=== PATIENT | male | born 1955 | race Caucasian/White ===

== ENCOUNTER 2021-12-15 11:50 | Observation (INO) ==
[2021-12-15 13:06] VITALS: TEMP 97.6
[2021-12-15 14:50] LABS: Basophils % 0.3 %; Eosinophils % 0.2 %; Immature Granulocytes % 0.2 % (0-4); Red Blood Count 5.08 M/mcL (4.19-5.50)
[2021-12-15 14:52] LABS: Hematocrit 44.5 % (37.5-50.1); Hemoglobin 14.2 g/dL (12.9-16.9); Immature Platelets 4.9 % (1.1-6.1); Lymphocytes # 1.4 K/mcL (0.6-4.6); Lymphocytes % 16.6 %; Mean Corpuscular HGB Conc 31.9 g/dL (31.6-35.5); Mean Corpuscular Volume 87.6 fL (83.0-100.0); Monocytes # 0.8 K/mcL (0.0-1.3); Monocytes % 8.8 %; Neutrophils # 6.4 K/mcL (1.6-8.9); Red Cell Distribution Width 21.9 % (11.5-14.5); Segmented Neutrophils % 73.9 %; White Blood Count 8.7 K/mcL (4.3-11.1)
[2021-12-15 15:06] LABS: BUN/Creatinine Ratio 31 (6-26); Blood Urea Nitrogen 28 mg/dL (8-23); Calcium 10.2 mg/dL (8.6-10.3); Carbon Dioxide 25 mEq/L (23-29); Chloride 96 mEq/L (98-107); Glucose 139 mg/dL (70-105); Osmolality,Calculated 282 (280-300); Potassium 4.9 mEq/L (3.5-5.1); Sodium 132 mEq/L (136-145)
[2021-12-15] MEDS ORDERED: Morphine Sulfate 2 MG/ML SYRINGE IVP ONE (15:36)
[2021-12-15] MEDS ORDERED: 0.9 % Sodium Chloride 1,000 ML IVC ONE (15:36)
[2021-12-15] MEDS ORDERED: Ondansetron 4 MG/2 ML VIAL IVP ONE (15:36)
[2021-12-15] MEDS ORDERED: Iopamidol - 370 500 ML MLS IVP ONE ×2 (15:37→15:39)
[2021-12-15 15:41] LABS: Platelet Count 97 K/mcL (140-400)
[2021-12-15 15:46] LABS: Polychromasia 1+ (Not Present); Stomatocytes 1+ (Not Present)
[2021-12-15 15:47] LABS: Platelet Estimate Decreased (Normal); Target Cells 1+ (Not Present)
[2021-12-15] MEDS ORDERED: Ipratropium/Albuterol Neb 3 ML IH ONE (15:54)
[2021-12-15 16:11] LABS: ABG Base Excess -2 mEq/L (-2 to 3); ABG HCO3 23 mEq/L (21-27); ABG Oxygen Saturation 92 % (95-98); ABG PCO2 38 mmHg (35-45); ABG PH 7.38 pH Units (7.32-7.45); ABG PO2 66 mmHg (85-104); ABG TCO2 24 mEq/L (20-26)
[2021-12-15 16:26] LABS: Lipase 35 Units/L (11-82)
[2021-12-15 16:31] LABS: Troponin I 0.08 ng/mL (< 0.04)
[2021-12-15] MEDS ORDERED: Aspirin 325 MG TABLET PO ONE (16:32)
[2021-12-15 16:37] LABS: INR 1.6; Prothrombin Time 17.5 Seconds (9.4-12.1)
[2021-12-15] MEDS ORDERED: cefTRIAXone 2,000 MG in 0.9 % Sodium Chloride Mini Bag 100 ML IVPB ONE (17:15)
[2021-12-15] MEDS ORDERED: Doxycycline 100 MG in 0.9 % Sodium Chloride Mini Bag 100 ML IVPB ONE (17:31)
[2021-12-15] MEDS: 0.9 % Sodium Chloride 1,000 ML IVC SCH ×2 (18:18→21:58)
[2021-12-15 18:37] LABS: Adenovirus Not Detected (Not Detect); Bordetella Pertussis Not Detected (Not Detect); Chlamydophila pneumoniae Not Detected (Not Detect); Coronavirus 229E Not Detected (Not Detect); Coronavirus HKU1 Not Detected (Not Detect); Coronavirus NL63 Not Detected (Not Detect); Coronavirus OC43 Not Detected (Not Detect); Human Metapneumovirus Not Detected (Not Detect); Human Rhinovirus/Enterovirus Not Detected (Not Detect); Influenza A Subtype 2009 H1 Not Detected (Not Detect); Influenza B Not Detected (Not Detect); Mycoplasma pneumoniae Not Detected (Not Detect); Parainfluenza Virus 1 Not Detected (Not Detect); Parainfluenza Virus 2 Not Detected (Not Detect); Parainfluenza Virus 3 Not Detected (Not Detect); Parainfluenza Virus 4 Not Detected (Not Detect); Respiratory Syncytial Virus Not Detected (Not Detect); SARS-CoV-2 Not Detected (Not Detect)
[2021-12-15] MEDS ORDERED: Heparin 25,000UNIT/250ML 1/2NS 25,000 UNIT/250 ML IV.SOLN IVC SCH ×2 (19:30)
[2021-12-15] MEDS ORDERED: Ondansetron 4 MG/2 ML VIAL IVP PRN (19:45)
[2021-12-15] MEDS ORDERED: Melatonin 3 MG TABLET PO PRN (19:45)
[2021-12-15] MEDS ORDERED: Naloxone 0.4 MG/ML INJ IVP PRN (19:45)
[2021-12-15] MEDS ORDERED: Pregabalin 50 MG CAPSULE PO SCH (21:01)
[2021-12-15] MEDS ORDERED: methylPREDNISolone 125 MG/2 ML VIAL IVP ONE ×2 (21:11→21:44)
[2021-12-15] MEDS ORDERED: Metoprolol XL (24 HR) Succ 25 MG TAB.ER.24H PO SCH (21:15)
[2021-12-15 21:18] VITALS: O2SAT 93
[2021-12-15 21:21] VITALS: BP 143/64; PULSE 92
[2021-12-15] MEDS ORDERED: D5% in Water 1,000 ML IVC PRN (21:43)
[2021-12-15] MEDS ORDERED: Dextrose Gel 15 GM/37.5 ML TUBE PO PRN ×2 (21:43)
[2021-12-15] MEDS ORDERED: *HR* Dextrose 50 % in Water (Syg) 50 ML SYRINGE IVP PRN (21:43)
[2021-12-15] MEDS ORDERED: Metoprolol XL (24 HR) Succ 25 MG TAB.ER.24H PO ONE (21:44)
[2021-12-15] MEDS ORDERED: Pregabalin 50 MG CAPSULE PO ONE (21:46)
[2021-12-15] MEDS ORDERED: 0.9 % Sodium Chloride 1,000 ML IV.SOLN IVC ONE (21:47)
[2021-12-15] MEDS ORDERED: Budesonide/Formoterol 160/4.5 1 PUFF INH IH SCH (22:00)
[2021-12-16] MEDS ORDERED: Ipratropium/Albuterol Neb 3 ML IH SCH
[2021-12-16] MEDS ORDERED: Doxycycline 100 MG in 0.9 % Sodium Chloride Mini Bag 100 ML IVPB SCH (06:00)
[2021-12-16] MEDS ORDERED: Insulin LISPRO 300 UNITS/3 ML VIAL SUBQ SCH ×2 (07:30→21:00)
[2021-12-16] MEDS ORDERED: cefTRIAXone 2,000 MG in 0.9 % Sodium Chloride Mini Bag 100 ML IVPB SCH (09:00)
[2021-12-16] MEDS ORDERED: Aspirin Enteric Coated 81 MG Tablet PO SCH (09:00)
[2021-12-16] MEDS ORDERED: predniSONE 20 MG TABLET PO SCH (09:00)
== END 2021-12-15 23:59 | disposition other institution (70) ==
LOC: EMEROOARM 11:50 → 2NENU 11:50 → SUATTDRO 19:41 → 2NENU 20:25
PROVIDERS: ADMIT Internal Medicine; ATTEND Internal Medicine